=== PATIENT | female | born 1990 | race American Indian/Alaskan Native ===

== ENCOUNTER 2019-08-01 12:51 | Emergency (ER) | payer SELFPAY ==
--- NOTE | 2019-08-01 14:26 | Event Note ---
ED Screening Note Date of service: 08/01/19 Time: 14:25 ED Screening Note: 28 y/o female comes in for abscess on right side of face since this morning. This initial assessment/diagnostic orders/clinical plan/treatment(s) is/are subject to change based on patients health status, clinical progression and re- assessment by fellow clinical providers in the ED. Further treatment and workup at subsequent clinical providers discretion. Patient/guardian urged not to elope from the ED as their condition may be serious if not clinically assessed and managed. Initial orders include:
[2019-08-01 14:29] VITALS: BP 108/80
== END 2019-08-01 17:30 | disposition left against medical advice (07) ==
LOC: ED 12:51
DX: R06.02 Shortness of breath (principal); R42 Dizziness and giddiness; Z53.21 Procedure and treatment not carried out due to patient leaving prior to being seen by health care provider